=== PATIENT | female | born 1940 | race Caucasian/White ===

== ENCOUNTER → 2017-04-25 | Outpatient (CLI) | payer MEDICARE | END | disposition home or self-care (01) | LOC: CFH 14:49 | PROVIDERS: ATTEND Physician Assistant | DX: M48.54XA Collapsed vertebra, not elsewhere classified, thoracic region, initial encounter for fracture (principal); M43.8X4 Other specified deforming dorsopathies, thoracic region; M41.84 Other forms of scoliosis, thoracic region; M25.512 Pain in left shoulder; M54.9 Dorsalgia, unspecified; R07.81 Pleurodynia | CPT/HCPCS: 72072 ==